=== PATIENT | male | born 1970 | race Caucasian/White ===

== ENCOUNTER 2016-08-19 10:26 | Observation (INO) ==
[2016-08-19] MEDS ORDERED: Albuterol 2.5 MG/3 ML NEBULIZER ONE (11:24)
[2016-08-19] MEDS ORDERED: 0.9 % Sodium Chloride 1,000 ML IVC ONE (11:56)
--- NOTE | 2016-08-19 12:00 | Emergency Department Note ---
Disposition Clinical Impression: Shortness of breath Chest pain Qualifiers: Chest pain type: unspecified Qualified Code(s): R07.9 - Chest pain, unspecified Disposition: Admitted As Inpatient Condition: Fair Referrals: Patricio Thomas DO [Primary Care Provider] - Forms: ED Satisfaction Letter Time of Disposition: 14:26 SOB HPI - General Chief Complaint: ED Shortness of Breath/Dyspnea Stated Complaint: sent per for admission Time Seen by Provider: 08/19/16 10:45 Source: patient, family Mode of arrival: ambulatory Limitations: no limitations Nursing Notes Reviewed: Yes Vital Signs Reviewed: Yes - History of Present Illness Pt Subjective Complaint: shortness of breath Onset (ago): day(s) (Onset of shortness of breath was about 6:00 in the morning yesterday.) Severity: moderate Consistency/Duration: constant, gradually worsening Improves with: nothing Worsens with: nothing (Patient does not note that exertion worsens the symptoms) Associated symptoms: Reports: chest pain (Patient states that when he takes a breath he feels a tightness in the center of his chest.), cough (Patient states that although yesterday he did not have a cough, he has noticed some cough today ). Denies: fever, lower extremity pain, diaphoresis Treatment prior to arrival: other (Patient went to the [facility] after the onset of his symptoms yesterday morning. Workup there was negative. He ended up coming here later on in the day and was seen in this emergency department around 7:00 in the evening. Workup at that time was negative including a negative troponin and a negative d-dimer and a negative chest x- ray. Patient was discharged but was afraid to go home so he actually slept all night in the emergency department lobby. He woke up this morning and signed back in.) Cough present: Yes Cough Frequency: Intermittent - Related Data Home oxygen amount: none Previous Rx's Medication Instructions Recorded Sulfamethoxazole/Trimeth DS 1 each PO BID #20 tablet 06/01/15 [Bactrim DS] LORazepam [Ativan] 0.5 mg PO HS PRN #9 tablet 08/18/16 Allergies Allergy/AdvReac Type Severity Reaction Status Date / Time aspirin Allergy Rash Verified 06/01/15 12:09 Penicillins Allergy Rash Verified 06/01/15 12:09 All systems ED: reviewed and negative except as stated. Constitutional: Denies: fever, chills ENT ED: Denies: ear pain, throat pain, congestion Cardiovascular: Reports: chest pain. Denies: palpitations Respiratory: Reports: cough, dyspnea Gastrointestinal: Denies: abdominal pain, nausea, vomiting Musculoskeletal: Denies: back pain, neck pain Integumentary: Denies: rash Neurological: Denies: headache Psychiatric: Denies: anxiety Past Medical History - Past Medical History Attestation: Yes The following information was validated with the patient. Source: patient, old records reviewed, obtained from family, nursing notes reviewed Medical history: Reports: GERD. Denies: CHF, COPD, coronary artery disease, pulmonary embolus Surgical history: Reports: no surgical history Psychiatric history: Reports: anxiety - Social History Smoking Status: Never smoker Smokeless Tobacco Status: No Alcohol use: Reports: occasionally Drug use: Reports: none Physical Exam - General Limitations: no limitations General appearance: alert, in no apparent distress - Head Head exam: atraumatic, normocephalic - Eye Eye exam: Present: normal appearance, PERRL, EOMI - ENT ENT exam: normal exam, normal oropharynx, mucous membranes moist, TM's normal bilaterally, normal external ear exam - Neck Neck exam: Present: normal inspection, full ROM - Chest Chest inspection: Present: normal inspection, symmetric chest wall rise. Absent : tenderness - Respiratory Respiratory exam: Present: normal lung sounds bilaterally. Absent: respiratory distress, wheezes - Cardiovascular Cardiovascular exam: Present: regular rate, normal rhythm, normal heart sounds - Abdominal Exam Abdominal exam: Present: soft, Non-Tender, normal bowel sounds - Extremities Exam Extremities exam: Present: normal inspection, full ROM. Absent: pedal edema - Neurological Exam Neurological exam: Present: alert, oriented X3 - Psychiatric Psychiatric exam: Present: normal affect, normal mood - Skin Skin exam: Present: warm, dry. Absent: rash Course Course Narrative: Patient presents with a complaint of shortness of breath especially going on since yesterday morning. Patient looks fine here in the emergency department. His vital signs are normal. His pulse ox is 100%. Lung examination is unremarkable. He appears in no distress. [facility] and was told he had anxiety and he started him on some prescription for anxiety. He had a normal workup last night here in this emergency department. I do not know if this patient really has medical problem or if this is just anxiety. He does have a cough now which could imply that maybe yesterday he was developing something adjusted and she will open workup. I am going to take a workup to the next level and get a whole panel blood work. On limited do a CTA of his chest to look for clots as well as a little pneumonias that may not be getting picked up on a chest x-ray. He will get a full dyspnea workup here. Disposition will be based on diagnostic results and reevaluation. Aspirin was not given because of allergy. - Reevaluation(s) Reevaluation #1: Workup is negative. Cardiac enzymes are negative and EKG is fine. There is no PE on the chest CT. There is no other intrathoracic pathology identified either. The patient was having chest discomfort and shortness of breath that is recurrent. His PCP sent him in because he was concerned about a cardiac cause. We are unable to rule out cardiac cause at this point. Patient is to be admitted for further evaluation. Time: 14:24 - Consultations Consultation #1: Dr. Vaelnte, hospitalist - I discussed this with the hospitalist. She has accepted the patient for admission. No further orders given. Time: 14:25 Vital Signs Temperature 97.6 F 08/19/16 10:32 Pulse Rate 85 08/19/16 10:32 Respiratory Rate 16 08/19/16 10:32 Blood Pressure 161/104 08/19/16 10:32 O2 Sat by Pulse Oximetry 99 08/19/16 10:32 Temperature 97.6 F 08/19/16 10:32 Pulse Rate 107 08/19/16 13:59 Respiratory Rate 16 08/19/16 13:59 Blood Pressure 155/99 08/19/16 13:59 O2 Sat by Pulse Oximetry 97 08/19/16 13:59 Oxygen Delivery Oxygen Delivery Room Air Shortness of Breath/Dyspnea - Medical Records Medical records reviewed: Yes I reviewed the patient's medical records. - Lab Data Lab results reviewed: Yes I reviewed the patient's lab results. Result diagrams: 08/19/16 11:01 08/19/16 11:01 Lab Results 08/19/16 08/19/16 08/19/16 Range/Units 11:01 11:01 11:01 WBC 8.5 (4.3-11.1) K/mcL RBC 5.06 (4.19-5.50) M/mcL Hgb 14.7 (12.9-16.9) g/dL Hct 43.1 (37.5-50.1) % MCV 85.2 (83.0-100.0) fL MCH 29.1 (28.0-33.3) pg MCHC 34.1 (31.6-35.5) g/dL RDW 12.4 (11.5-14.5) % Plt Count 310 (140-400) K/mcL MPV 10.1 (9.4-12.4) fL Immature Gran % 0.5 (0-4) % Seg Neutrophils % 71.0 % Lymphocytes % 19.1 % Monocytes % 7.9 % Eosinophils % 1.3 % Basophils % 0.2 % Neutrophils # 6.0 (1.6-8.9) K/mcL Lymphocytes # 1.6 (0.6-4.6) K/mcL Monocytes # 0.7 (0.0-1.3) K/mcL Eosinophils # 0.1 (0.0-0.6) K/mcL Basophils # 0.0 (0.0-0.2) K/mcL ABG pH (7.32-7.45) pH Units ABG pCO2 (35-45) mmHg ABG pO2 (85-104) mmHg ABG HCO3 (21-27) mEQ/L ABG Total CO2 (20-26) mEq/L ABG O2 Saturation (95-98) % ABG Base Excess (-2.0 to 3.0) mEq/L Blood Gas Modality Inspired O2 % Sodium 138 (136-145) mEq/L Potassium 3.6 (3.5-4.5) mEq/L Chloride 105 (98-109) mEq/L Carbon Dioxide 20 (19-29) mEq/L BUN 18 (8-26) mg/dL Creatinine 1.09 (0.72-1.25) mg/dL Est GFR ( Amer) > 60 (> 60) Est GFR (Non-Af Amer) > 60 (> 60) BUN/Creatinine Ratio 17 (6-26) Glucose 99 (70-99) mg/dL Calculated Osmolality 288 (280-300) Lactic Acid (0.5-2.2) mmol/L Calcium 9.7 (8.6-10.8) mg/dL Troponin I 0.00 (0-0.03) ng/mL B-Natriuretic Peptide (0-100) pg/mL 08/19/16 08/19/16 08/19/16 Range/Units 11:01 12:10 12:25 WBC (4.3-11.1) K/mcL RBC (4.19-5.50) M/mcL Hgb (12.9-16.9) g/dL Hct (37.5-50.1) % MCV (83.0-100.0) fL MCH (28.0-33.3) pg MCHC (31.6-35.5) g/dL RDW (11.5-14.5) % Plt Count (140-400) K/mcL MPV (9.4-12.4) fL Immature Gran % (0-4) % Seg Neutrophils % % Lymphocytes % % Monocytes % % Eosinophils % % Basophils % % Neutrophils # (1.6-8.9) K/mcL Lymphocytes # (0.6-4.6) K/mcL Monocytes # (0.0-1.3) K/mcL Eosinophils # (0.0-0.6) K/mcL Basophils # (0.0-0.2) K/mcL ABG pH 7.51 H (7.32-7.45) pH Units ABG pCO2 30 L (35-45) mmHg ABG pO2 66 L (85-104) mmHg ABG HCO3 23.9 (21-27) mEQ/L ABG Total CO2 24.8 (20-26) mEq/L ABG O2 Saturation 95 (95-98) % ABG Base Excess 1.8 (-2.0 to 3.0) mEq/L Blood Gas Modality RA Inspired O2 21 % Sodium (136-145) mEq/L Potassium (3.5-4.5) mEq/L Chloride (98-109) mEq/L Carbon Dioxide (19-29) mEq/L BUN (8-26) mg/dL Creatinine (0.72-1.25) mg/dL Est GFR ( Amer) (> 60) Est GFR (Non-Af Amer) (> 60) BUN/Creatinine Ratio (6-26) Glucose (70-99) mg/dL Calculated Osmolality (280-300) Lactic Acid 2.0 (0.5-2.2) mmol/L Calcium (8.6-10.8) mg/dL Troponin I (0-0.03) ng/mL B-Natriuretic Peptide < 10 (0-100) pg/mL - Radiology Data Radiology results reviewed: Yes I reviewed the patient's radiology results. - EKG Data EKG attestation: Yes I reviewed and interpreted this EKG. EKG shows normal: Reports: sinus rhythm, axis, intervals, QRS complexes, ST-T waves Rate: Reports: normal Interpretation: Reports: no acute changes, normal EKG
[2016-08-19 12:12] LABS: Basophils % 0.2 %; Eosinophils # 0.1 K/mcL (0.0-0.6); Eosinophils % 1.3 %; Hematocrit 43.1 % (37.5-50.1); Hemoglobin 14.7 g/dL (12.9-16.9); Immature Granulocytes % 0.5 % (0-4); Lymphocytes # 1.6 K/mcL (0.6-4.6); Lymphocytes % 19.1 %; Mean Corpuscular HGB Conc 34.1 g/dL (31.6-35.5); Mean Corpuscular Hemoglobin 29.1 pg (28.0-33.3); Mean Corpuscular Volume 85.2 fL (83.0-100.0); Mean Platelet Volume 10.1 fL (9.4-12.4); Monocytes # 0.7 K/mcL (0.0-1.3); Monocytes % 7.9 %; Platelet Count 310 K/mcL (140-400); Red Blood Count 5.06 M/mcL (4.19-5.50); Red Cell Distribution Width 12.4 % (11.5-14.5)
[2016-08-19 12:20] LABS: BUN/Creatinine Ratio 17 (6-26); Blood Urea Nitrogen 18 mg/dL (8-26); Calcium 9.7 mg/dL (8.6-10.8); Carbon Dioxide 20 mEq/L (19-29); Chloride 105 mEq/L (98-109); Glucose 99 mg/dL (70-99); Osmolality,Calculated 288 (280-300); Potassium 3.6 mEq/L (3.5-4.5); Sodium 138 mEq/L (136-145); eGFR For African Americans > 60 (> 60); eGFR For Non-African Americans > 60 (> 60)
[2016-08-19 12:36] LABS: ABG Base Excess 1.8 mEq/L (-2.0 to 3.0); ABG HCO3 23.9 mEQ/L (21-27); ABG Oxygen Saturation 95 % (95-98); ABG PCO2 30 mmHg (35-45); ABG PH 7.51 pH Units (7.32-7.45); ABG PO2 66 mmHg (85-104); ABG TCO2 24.8 mEq/L (20-26)
[2016-08-19 12:37] LABS: Blood Gas FiO2 21 %
[2016-08-19] MEDS ORDERED: Acetaminophen 325 MG TABLET PO PRN (15:53)
[2016-08-19] MEDS ORDERED: Ondansetron 4 MG/2 ML VIAL IVP PRN (15:53)
[2016-08-19] MEDS ORDERED: Naloxone 0.4 MG/ML INJ IVP PRN (15:53)
[2016-08-19] MEDS ORDERED: MOM Conc 10 ML UD.LIQ PO PRN (15:53)
[2016-08-19] MEDS ORDERED: *HR* HYDROcodone/Acet 5/325 mg TABLET PO PRN (15:53)
[2016-08-19] MEDS ORDERED: *HR* LORazepam 2 MG/ML VIAL IVP PRN ×2 (15:57)
--- NOTE | 2016-08-19 16:09 | Internal Med History&Physical ---
<AricHuma - Last Filed: 08/19/16 16:05> Date of Encounter: 08/19/16 Time of Encounter: 15:30 Assessment and Plan (1) Chest pain Current visit: Yes Status: Acute Pt has 3 week history of intermittent mid-sternal chest heaviness, SOB, diaphoresis, and BUE tingling. Pt has had 4 episodes of this and has had 4 ER visits for same, most recently today and yesterday. There is no real pattern to the heaviness, is not worse with eating, movement, or palpation, however today he does have the same heaviness with deep inspiration. Denies cough, congestion , fever, or anyone at home being ill. Pt had CTA today which showed no evidence of PE or disease process. Chest xray from yesterday also negative for any acute processes. EKG is NSR. Troponin 0.00ng/dl, will draw third. Chest heaviness most likely from anxiety since there is no pattern and pt admits to feeling impending doom when he has these episodes, however, cardiac origin cannot be ruled out. Continuous cardiac monitoring Stress test in a.m. Lipid panel Pt did not have ASA in ER due to allergy-rash Monitor VS Troponin x 1 (final) Qualifiers: Chest pain type: unspecified Qualified Code(s): R07.9 - Chest pain, unspecified (2) Shortness of breath Current visit: Yes Status: Acute Pt is only SOB when he has the chest heaviness. Told him to make sure that he puts his call light on if he experiences the heaviness or SOB while admitted. Continuous cardiac monitoring Monitor pt (3) Alcohol abuse Current visit: Yes Status: Chronic Pt states that he normally drinks 6-12 beers daily "for years". Apparently he quit drinking cold turkey 6 days ago "because I was drinking too much." He admits to having 2 beers three days ago and 2 beers two days ago, but none since. Liver panel CIWAH scale Folic Acid, MVI, Thiamine Monitor VS and activity (4) Anxiety Current visit: No Status: Acute Pt denies feeling like he is having anxiety of panic attacks. Pt does admit to feeling of impending doom and fear. Denies any new or changed stressors in his life, denies difficulty with finances, marriage, job, family, etc. States that he has been awakened at night gasping for air, but was told by [facility] ED that he is having reflux and was placed on Prilosec 20mg, then it was increased to 40mg when symptoms did not elia. If cardiac origin of pt's symptoms can be ruled out, anxiety is certainly a possibility. Continue Zoloft 25mg po daily CIWAH for withdraw symptoms Consult mental health if Cardiac is ruled out Internal Medicine - H&P: HPI Chief complaint: chest heaviness, sob Admitted From: Home Plans for Post Hospital Care: Home History of present illness: Mr. Marvin is a 46 year old male with approx 3 week history of intermittent chest heaviness. Pt has had 4 episodes over the last 3 weeks, each different. Pt was seen yesterday at the [facility] for mid-sternal chest heaviness that started while he was driving to work yesterday. Had chest heaviness, with SOB and diaphoresis that were new symptoms, so he was seen at the [facility], then came here to be seen. Pt lives approx 30 min away and was too afraid to drive home last night because of the SOB, so he slept in the lobby and checked in again this a.m. Pt denies worsening of the pain with exertion and states that heaviness is so intense that he can't move when he has it. Rates it 8/10, does not radiate, and is not reproduceable with palpation, however, today he states that he has the heaviness with deep inspiration. Pt just started on Zoloft 25mg po daily yesterday for diagnosis of possible anxiety with these same symptoms. He admits to consuming about 6-12 beers daily and quit about 6 days ago, but had 2 beers on Thu and 2 on Thursday, so pt has not had a drink in 2 days. Past Med Surg Social Fam HX - Past Medical History Medical history: GERD Psychiatric history: anxiety - Past Surgical History Surgical History: no surgical history - Social History Smoking Status: Never smoker Smokeless Tobacco Status: No Alcohol use: heavy, recent Drug use: none Occupational status: employed Current living situation: Home Activity Level: Independent ambulation - Family History Mother Hx Family Cardiac Disorders: Yes (CAD) Internal Medicine - H&P: Meds Omeprazole [PriLOSEC] 40 mg PO DAILY 08/19/16 [History] Sertraline [Zoloft] 25 mg PO DAILY 08/19/16 [History] Allergies aspirin Allergy (Verified 06/01/15 12:09) Rash Penicillins Allergy (Verified 06/01/15 12:09) Rash All Systems PM: A 10-system review of systems was performed and is negative for pertinent findings except as documented above in the HPI. - Constitutional Constitutional: no chills, no fever(s), no weakness - Cardiovascular Cardiovascular ROS IM: chest pain, diaphoresis, dyspnea, no dyspnea on exertion , no edema, no irregular heart rhythm, no lightheadedness, no syncope - Respiratory Respiratory: dyspnea, pain on inspiration, no dyspnea on exertion, no wheezing, no stridor, no chest congestion - Gastrointestinal Gastrointestinal: no abdominal pain, no diarrhea, no heartburn, no nausea, no vomiting - Musculoskeletal Musculoskeletal ROS IM: tingling Additional comments: Pt reports that sometimes he has tingling to BUE. - Neurological Neurological ROS: no abnormal hearing, no abnormal speech, no confusion, no dizziness, no headache(s), no loss of vision - Psychiatric Psychiatric: no auditory hallucinations, no hallucinations, no hopelessness, no panic attacks, no visual hallucinations - Endocrine Endocrine IM: no flushing, no polydipsia, no polyphagia, no polyuria - Constitutional Vitals: Temp Pulse Resp BP Pulse Ox 97.7 F 87 17 139/84 98 08/19/16 15:25 08/19/16 15:25 08/19/16 15:25 08/19/16 15:25 08/19/16 15:25 General appearance: Present: A&O X 3, pleasant, no acute distress - Head Head exam: Present: normal inspection - Eye Eye exam: Present: normal appearance, PERRL, conjuntiva pink - Neck Neck exam general surgery: Present: normal inspection. Absent: lymphadenopathy , tenderness - Respiratory Respiratory exam: Present: CTAB. Absent: chest wall tenderness, rales, rhonchi , wheezes - Cardiovascular Cardiovascular exam: Present: RRR, +S1, +S2. Absent: diastolic murmur, irregular rhythm, JVD, systolic murmur - GI/Abdominal GI/Abdominal exam: Present: normal bowel sounds, soft. Absent: tenderness - Extremities Exam Extremities exam: Present: full ROM, normal capillary refill, warm, radial pulses palpable and symetrical. Absent: pedal edema, tenderness - Neurological Exam Neurological exam: Present: alert, oriented X3, no focal deficits, strengths equal and symetr throughout Internal Med - H&P Results - Labs CBC & Chem 7: 08/19/16 11:01 08/19/16 11:01 - EKG Data EKG shows normal: sinus rhythm - EKG Data Prior EKG available for review: yes EKG comments: 08/19/16 16:22 NSR rate 82 DE interval 140 QRS 96ms QT 371ms <Ruth Alva - Last Filed: 08/20/16 07:37> Date of Encounter: 08/20/16 Internal Medicine - H&P: HPI History of present illness: Mr. Marvin is a 46 year old male All Systems PM: A 10-system review of systems was performed and is negative for pertinent findings except as documented above in the HPI. - Constitutional Vitals: Temp Pulse Resp BP Pulse Ox 97.9 F 71 14 168/93 98 08/20/16 04:14 08/20/16 04:14 08/20/16 04:14 08/20/16 04:14 08/20/16 04:14 Internal Med - H&P Results - Labs CBC & Chem 7: 08/20/16 05:05 08/20/16 05:05 Labs: Short CBC 08/20/16 Range/Units 05:05 WBC 8.8 (4.3-11.1) K/mcL Hgb 14.0 (12.9-16.9) g/dL Hct 40.6 (37.5-50.1) % Plt Count 258 (140-400) K/mcL BMP 08/20/16 05:05 Sodium 138 Potassium 3.9 Chloride 108 Carbon Dioxide 21 BUN 18 Creatinine 1.05 Glucose 100 H Calcium 9.2 Cardiac Enzymes 08/19/16 Range/Units 16:50 Troponin I 0.00 (0-0.03) ng/mL Liver Function 08/19/16 Range/Units 16:50 Total Bilirubin 0.9 (0.2-1.2) mg/dL Direct Bilirubin 0.2 (0.0-0.5) mg/dL AST 19 (5-34) Units/L ALT 23 (0-55) Units/L Alkaline Phosphatase 83 (38-126) Units/L Albumin 3.3 L (3.5-5.0) g/dL - Attending Attestation I examined this patient and my medical decision-making was reviewed with the SUBSTATION OPERATOR TRANSFORMING. I agree with the documented history of present illness, review of systems, past medical, surgical social and family histories and examination findings, disposition and treatment plan as described above except to any changes set forth below. 46-year-old male with positive family history for coronary artery disease presented with chest pain. Sudden onset. It began 2 days back. No relation to activity. No should significant shortness of breath. No palpitations. No dizziness or light or numbness. No cough or sputum production. Exam: Patient is awake alert oriented 3. Regular rhythm, normal S1 and S2. No chest wall tenderness. Good air entry bilaterally. Normal breath sounds. No epigastric tenderness. Chest pain: High risk for coronary artery disease with positive family history and possibly undiagnosed hypertension.Related to anxiety and GERD. Will trend troponins. Telemetry. Normal EKG. If troponins negative, plan for stress test. High blood pressure: Previous no previous diagnosis of hypertension. If the blood pressure is persistently elevated, will start on antihypertensives. Alcohol abuse: Monitor for withdrawal signs. Place on CIWA protocol. This document has been at least partially created by [employer] recognition technology by Dr. Alva. Errors in grammar, wording or other phrases may exist. If errors are found after the documentation is signed, they will be addressed individually in the addendum section of this document when appropriate.
[2016-08-19 17:37] LABS: Albumin 3.3 g/dL (3.5-5.0); Albumin/Globulin Ratio 0.8 (1.1-2.2); Bilirubin,Direct 0.2 mg/dL (0.0-0.5); Bilirubin,Indirect 0.7 mg/dL (0.0-1.2); Bilirubin,Total 0.9 mg/dL (0.2-1.2); Chol/HDL Ratio 7.1 (0-4.9); Globulin 3.9 g/dL (2.4-3.5); Total Protein 7.2 g/dL (6.0-8.3)
[2016-08-19 17:39] LABS: Hemoglobin A1C 4.9 %
[2016-08-20 05:51] LABS: Hematocrit 40.6 % (37.5-50.1); Mean Corpuscular HGB Conc 34.5 g/dL (31.6-35.5); Mean Corpuscular Hemoglobin 29.9 pg (28.0-33.3); Mean Corpuscular Volume 86.8 fL (83.0-100.0); Mean Platelet Volume 10.1 fL (9.4-12.4); Platelet Count 258 K/mcL (140-400); Red Blood Count 4.68 M/mcL (4.19-5.50); Red Cell Distribution Width 12.5 % (11.5-14.5)
[2016-08-20 06:19] LABS: BUN/Creatinine Ratio 17 (6-26); Blood Urea Nitrogen 18 mg/dL (8-26); Calcium 9.2 mg/dL (8.6-10.8); Carbon Dioxide 21 mEq/L (19-29); Chloride 108 mEq/L (98-109); Glucose 100 mg/dL (70-99); Osmolality,Calculated 288 (280-300); Potassium 3.9 mEq/L (3.5-4.5); Sodium 138 mEq/L (136-145); eGFR For African Americans > 60 (> 60); eGFR For Non-African Americans > 60 (> 60)
[2016-08-20] MEDS ORDERED: Thiamine (B-1) 100 MG, Folic Acid 1 MG, MVI, adult with vitamin K 10 ML in 0.9 % Sodi... IV SCH (09:00)
[2016-08-20] MEDS ORDERED: Thiamine (B-1) 100 MG TABLET PO SCH (09:00)
[2016-08-20] MEDS ORDERED: Folic Acid 1 MG TABLET PO SCH (09:00)
--- NOTE | 2016-08-20 11:29 | Electrocardiograph Report ---
[place] [id number] Test Date: 2016-08-19 Pat Name: Dennis Marvin Department: 103 Room: 3B49 Gender: M Field Contact Technician: : 1970 Requested By: Clinton Carter Order Number: [id number] Reading MD: Russell Zazueta MD Measurements Intervals [place] Rate: 82 P: 36 MI: 140 QRS: 46 QRSD: 96 T: 36 QT: 371 QTc: 410 Interpretive Statements SINUS RHYTHM Electronically Signed On 08-20-2016 11:28:11 EST by Russell Zazueta MD
[2016-08-20 11:35] VITALS: BP 169/69
--- NOTE | 2016-08-20 12:03 | Nuclear Medicine Stress Report ---
Exercise Nuclear Stress Name: Dennis Marvin Date of Study: 08/20/2016 Date: 1970 Ht: 67.0 in Medical Record#: [id number] Age: 46 Wt: 196.0 lb Gender: Male Order #: [id number] Location: [facility] Room: [facility] Supervising Provider: Siomara Collazo CNP Reading Physician: Edgar Smiley DO, JOSE ANTONIO, CIERA BENITEZ Ordering Physician: Ruth Alva MD Primary Care Physician: Rachele Thomas DO Stress Technologist: Merline Mckeon, RURAL CARRIER, CCT, CPFT Clinical Practitioner: Jose Knight Indications: Chest Pain, Shortness of breath Impression: Exercise ECG is negative for ischemia. Occasional PVCs noted during stress. The exercise capacity was average (7.0 METs). No chest discomfort reported. Perfusion imaging was negative for ischemia or infarct. Stress Test Summary: Stress Test Type: Treadmill Protocol: Maxime Baseline Information: Initial Heart Rate: 85 Blood Pressure: 130/84 Stress Information: Stress Time: 6 min 45 sec Test Terminated Due to (primary): Dyspnea Maximum Blood Pressure: 156/60 Maximum Heart Rate: 158 Percent Maximum Heart Rate Achieved: 90 Double Product: 38155 METS Reached: 7 Symptoms: Shortness of breath Nuclear Summary: SPECT myocardial perfusion imaging using Tc99m Sestamibi given intravenously was performed at rest and following cardiac stress testing. The resting images were obtained following initial dose of 11.6 mCi. Following stress an additional dose of 30 mCi was given at peak exercise or 30 seconds post regadenoson infusion. Medication Given: Time Medication Dose Units Route Findings: Stress Note * Resting ECG demonstrated normal sinus rhythm. * No baseline arrhythmias were noted. * Exercise ECG is negative for ischemia. * Occasional PVCs noted during stress. * Patient had no chest pain during stress. * The exercise capacity was average. * Normal hemodynamic responses to exercise. Study Quality * Study quality is average. Gated EF % * Gated EF = 52%. Left Ventricle * The left ventricle is not dilated. LVEDV = 99 mL. NORMALS * Normal wall motion. * Normal segmental perfusion in stress. * Normal Segmental Perfusion in rest. TID * No evidence of transient ischemic dilatation. TID ratio = 1.05. Lung Uptake * There is no evidence of increase lung uptake. Updated by Edgar Smiley DO, FACKam, CIERA BENITEZ on 08/20/2016 11:58:28 AM electronically signed on 08/20/2016 12:00:20 PM with status of Final
--- NOTE | 2016-08-20 14:14 | Discharge Summary ---
Date of Encounter: 08/20/16 Time of Encounter: 13:30 - Discharge Diagnosis (1) Chest pain Priority: Primary Status: Acute Qualifiers: Chest pain type: other chest pain Qualified Code(s): R07.89 - Other chest pain; R07.8 - Other chest pain (2) Shortness of breath Priority: Secondary Status: Acute (3) Alcohol abuse Priority: Secondary Status: Chronic (4) Anxiety Priority: Secondary Status: Acute (5) Hypertension Priority: Secondary Status: Acute Qualifiers: Hypertension type: essential hypertension Qualified Code(s): I10 - Essential (primary) hypertension - Discharge Medications Prescriptions: Carvedilol 3.125 mg PO BID #60 tab Home Medications: Omeprazole [PriLOSEC] 40 mg PO DAILY 08/19/16 [History] Sertraline [Zoloft] 25 mg PO DAILY 08/19/16 [History] Carvedilol 3.125 mg PO BID #60 tab 08/20/16 [Rx] Allergies/Adverse Reactions: Allergies aspirin Allergy (Verified 06/01/15 12:09) Rash Penicillins Allergy (Verified 06/01/15 12:09) Rash Procedures/tests Complete & Pending: Procedures Performed prior 72 hours Category Date Time Status NM gabriel perf SPECT multi [NM] Routine Exams 08/19/16 16:04 Taken SP exercise nuclear stress Routine Y 08/20/16 07:45 Completed Date of admission: 08/19/16 14:33 Primary care physician: Patricio Thomas Consults: 08/19/16 15:57 Consult to County Bailiff [CONS] Routine Reason for SW Consult: Pt has long history of etoh abuse and has been trying to quit, could you provide info on tx options, please? Discharging clinician: Ruth Alva Anticipated date of discharge: 08/20/16 - Patient Status Disposition: Home, Self-Care Condition: Good Functional capacity at discharge: independent ambulation Overall status at discharge: patient is progressing back to baseline - Discharge Instructions Instructions: Chest Pain (DC), Chronic Hypertension (DC), Anxiety (DC) Follow Up With: Patricio Thomas DO [Primary Care Provider] - (Follow-up PCP in 1-2 weeks) Dg Boston MD [Partnered Physician] - (this week for EGD) - Diet and Activity Activity: resume usual activities as tolerated Diet: advance to your usual diet, low fat, low cholesterol, low salt diet Hospital course: Mr. Marvin is a 46 year old male with past medical history of gastroesophageal reflux disease, ? esophageal strictures presented to the ER with complaints of chest heaviness. He was observed in the hospital to rule out acute coronary syndrome as patient has a family history of coronary artery disease. His troponins were negative. His EKG did not show any signs suggestive of ischemia. He then underwent a cardiac stress test today which did not show any signs of ischemia. The patient was recently seen in the ER and started on treatment for anxiety with Zoloft and Ativan when necessary for possible panic attacks. She was complaining of shortness of breath but his oxygen saturation has been good and his respiratory exam has been essentially normal. His VBG showed PCO2 of 30 and PO2 of 66 suggesting hyperventilation and panic attacks symptoms. He also underwent a CT angiogram which did not show any acute process. At this time, the patient is stable to be discharged home and will further management. He has been treated with Prilosec for 3 weeks for his gastroesophageal reflux disease. Would recommend upper GI endoscopy as outpatient for further evaluation. I will refer him to GI for this. If his GI workup was also negative, patient would benefit from referral to psychiatry for management of anxiety. - Time Spent with Patient Total time spent providing and/or coordinating discharge services: Greater than 30 minutes (40 min) - Constitutional Vitals: Temp Pulse Resp BP Pulse Ox 98.0 F 89 16 169/69 97 08/20/16 11:33 08/20/16 11:33 08/20/16 11:33 08/20/16 11:33 08/20/16 11:33 General appearance: Present: A&O X 3, pleasant, no acute distress - Respiratory Respiratory exam: Present: CTAB. Absent: accessory muscle use, rales, rhonchi, wheezes - Cardiovascular Cardiovascular exam: Present: RRR, +S1, +S2. Absent: diastolic murmur, gallop, rubs, systolic murmur - GI/Abdominal GI/Abdominal exam: Present: normal bowel sounds, soft, no peritoneal signs. Absent: distended, tenderness - Neurological Exam Neurological exam: Present: alert, oriented X3, no focal deficits, strengths equal and symetr throughout. Absent: facial droop, speech deficit - Attending Attestation This document has been at least partially created by [employer] recognition technology by Dr. Alva. Errors in grammar, wording or other phrases may exist. If errors are found after the documentation is signed, they will be addressed individually in the addendum section of this document when appropriate.
== END 2016-08-20 15:46 | disposition home or self-care (01) ==
LOC: EMEROO 10:26 → 3BNU 10:26 → SUATTDRO 14:33 → 3BNU 15:14
PROVIDERS: ADMIT Registered Nurse; ATTEND Internal Medicine